=== PATIENT | female | born 2000 | race Asian ===

== ENCOUNTER 2019-01-30 00:38 | Emergency (ER) | payer BC ==
[~2019-01-30] VITALS: Ht 165.1 cm; Wt 59.0 kg
[2019-01-30 00:45] VITALS: Ht 165.1 cm; Wt 59.0 kg
[2019-01-30 01:43] LABS: BASOPHIL % 0.4 % (0-2); RED CELL DISTRIBUTION WIDTH 12.8 % (11.5-14.5)
[2019-01-30 01:50] LABS: PLATELET COUNT 442 x10^3mcL (130-400)
[2019-01-30 02:16] LABS: AMPHETAMINE QUAL UR NONE DETECTED (See below)
[2019-01-30 02:45] VITALS: BP 110/57
== END 2019-01-30 02:45 | disposition home or self-care (01) ==
LOC: ED 00:38
PROVIDERS: Emergency Medicine
DX: R06.4 Hyperventilation (principal); D72.829 Elevated white blood cell count, unspecified; F41.9 Anxiety disorder, unspecified
CPT/HCPCS: 36415; G0480; J7030